=== PATIENT | female | born 2000 | race Caucasian/White ===

== ENCOUNTER 2020-07-26 07:51 | Inpatient (IN) | payer OTHER ==
[~2020-07-26] VITALS: Ht 167.6 cm; Wt 94.3 kg
[~2020-07-26 07:51] MED LIST: IBUP-2437
[2020-07-26] MEDS ORDERED: MORPHINE SULFATE 4 MG/ML CPJ (NOT FOR IM USE) IV STA (08:17)
[2020-07-26 09:12] LABS: CHLORIDE 107 mEq/L (98-107)
[2020-07-26 09:18] LABS: BASOPHILS % 0.3 % (0.0-2.0); EOSINOPHILS % 0.7 % (0.0-5.0); HEMATOCRIT. 38.5 % (36.0-48.0); HEMOGLOBIN. 12.5 g/dL (12.0-16.0); LYMPHOCYTES % 16.5 % (20.0-50.0); MEAN CORPUSCULAR HEMOGLOBIN 24.8 pg (28.0-32.0); MEAN PLATELET VOLUME 8.1 fl (7.4-10.4); NEUTROPHILS % 75.5 % (40.0-76.0); PLATELET 282 x1000/uL (130-400); RED BLOOD CELL COUNT 5.06 mill/uL (4.2-5.4); RED CELL DISTRIBUTION WIDTH 14.9 % (11.6-14.6)
[2020-07-26 09:23] LABS: PROTHROMBIN TIME 10.6 sec (9.6-11.0)
[2020-07-26 09:35] LABS: CLARITY URINE CLOUDY (CLEAR); COLOR URINE YELLOW (YELLOW); KETONES URINE NEGATIVE (NEGATIVE); LEUKOCYTE ESTERASE URINE 3+ (NEGATIVE); NITRITE URINE NEGATIVE (NEGATIVE); OCCULT BLOOD URINE 2+ (NEGATIVE); PROTEIN URINE 1+ (NEGATIVE); SPECIFIC GRAVITY URINE 1.019 (1.005-1.030)
[2020-07-26 09:38] LABS: HCG SCREEN NEGATIVE
[2020-07-26] MEDS ORDERED: MORPHINE SULFATE 4 MG/ML CPJ (NOT FOR IM USE) IV ONE ×2 (10:15→12:45)
[2020-07-26] MEDS ORDERED: CEFTRIAXONE 1 G PREMIX 50 ML IV ONE (10:30)
[2020-07-26] MEDS: KETOROLAC 15MG/ML VIAL IV PRN (16:37)
[2020-07-26] MEDS ORDERED: ACETAMINOPHEN 325MG TABLET PO PRN (18:15)
[2020-07-26] MEDS: HYDROCODONE/ACETAMINOPHEN 5/325MG TABLET PO PRN (18:49)
[2020-07-26 20:00] VITALS: BP 113/68
[2020-07-26] MEDS: ONDANSETRON HCL 4MG/2ML INJ IV PRN (20:07)
[2020-07-26] MEDS: HYDROMORPHONE HCL/PF 2MG/ML CPJ IV PRN (21:00)
[2020-07-26] MEDS ORDERED: INFLUENZA VACCINE 05/PF 0.5 ML VIAL IM ONE (23:30)
[2020-07-27] VITALS: BP 120/75
[2020-07-27] MEDS: HYDROCODONE/ACETAMINOPHEN 5/325MG TABLET PO PRN (01:05)
[2020-07-27 04:00] VITALS: BP 125/80
[2020-07-27 08:00] VITALS: BP 109/63
[2020-07-27] MEDS: ONDANSETRON HCL 4MG/2ML INJ IV PRN ×2 (09:01→18:08)
[2020-07-27] MEDS: HYDROMORPHONE HCL/PF 2MG/ML CPJ IV PRN ×3 (09:03→23:14)
[2020-07-27] MEDS ORDERED: CEFTRIAXONE 1,000 MG in DEXTROSE 5% WATER 50 ML IV SCH (11:00)
[2020-07-27 12:00] VITALS: BP 114/62
[2020-07-27] MEDS: KETOROLAC 15MG/ML VIAL IV PRN (13:54)
[2020-07-27 16:00] VITALS: BP 116/82
[2020-07-27 16:18] LABS: BASOPHILS % 0.3 % (0.0-2.0); EOSINOPHILS % 0.8 % (0.0-5.0); HEMATOCRIT. 36.3 % (36.0-48.0); HEMOGLOBIN. 11.9 g/dL (12.0-16.0); LYMPHOCYTES % 21.6 % (20.0-50.0); MEAN CORPUSCULAR HEMOGLOBIN 25.2 pg (28.0-32.0); MEAN CORPUSCULAR VOLUME 76.9 fL (81.0-99.0); MEAN PLATELET VOLUME 8.1 fl (7.4-10.4); MONOCYTES % 9.2 % (2.0-8.0); NEUTROPHILS % 68.1 % (40.0-76.0); PLATELET 277 x1000/uL (130-400); RED BLOOD CELL COUNT 4.72 mill/uL (4.2-5.4); RED CELL DISTRIBUTION WIDTH 15.3 % (11.6-14.6)
[2020-07-27 16:27] LABS: CHLORIDE 104 mEq/L (98-107)
[2020-07-27] MEDS ORDERED: POTASSIUM CHLORIDE 20MEQ TABLET SR PO NR (17:00)
[2020-07-27] MEDS: SODIUM CHLORIDE 0.9% 1,000 ML IV SCH (17:11)
[2020-07-27 20:00] VITALS: BP 105/66
[2020-07-27] MEDS ORDERED: LACTULOSE 20G/30ML UDC PO PRN (22:58)
[2020-07-28] VITALS: BP 106/58
[2020-07-28 04:00] VITALS: BP 106/61
[2020-07-28 08:00] VITALS: BP 104/56
[2020-07-28] MEDS: DOCUSATE SODIUM 100MG CAPSULE PO SCH ×2 (08:37→17:53)
[2020-07-28] MEDS: CEFTRIAXONE 1,000 MG in DEXTROSE 5% WATER 50 ML IV SCH (10:30)
[2020-07-28] MEDS: HYDROMORPHONE HCL/PF 2MG/ML CPJ IV PRN ×2 (10:31→21:32)
[2020-07-28 12:00] VITALS: BP 124/78
[2020-07-28] MEDS ORDERED: VANCOMYCIN 2,000 MG in DEXT 5% WATER 500 ML IV NR (15:00)
[2020-07-28 16:00] VITALS: BP 132/64
[2020-07-28] MEDS ORDERED: DIPHENHYDRAMINE 50MG/ML VIAL IV PRN (19:45)
[2020-07-28 20:00] VITALS: BP 124/69
[2020-07-28] MEDS: SODIUM CHLORIDE 0.9% 1,000 ML IV SCH (20:02)
[2020-07-28] MEDS: VANCOMYCIN 1 G PREMIX 200 ML IV SCH (23:48)
[2020-07-29] VITALS: BP 123/78
[2020-07-29 04:00] VITALS: BP 115/61
[2020-07-29 06:02] LABS: BASOPHILS % 0.4 % (0.0-2.0); EOSINOPHILS % 1.1 % (0.0-5.0); HEMATOCRIT. 34.4 % (36.0-48.0); HEMOGLOBIN. 11.4 g/dL (12.0-16.0); LYMPHOCYTES % 19.8 % (20.0-50.0); MEAN CORPUSCULAR HEMOGLOBIN 25.3 pg (28.0-32.0); MEAN CORPUSCULAR VOLUME 76.1 fL (81.0-99.0); MEAN PLATELET VOLUME 7.9 fl (7.4-10.4); MONOCYTES % 7.7 % (2.0-8.0); PLATELET 284 x1000/uL (130-400); RED BLOOD CELL COUNT 4.52 mill/uL (4.2-5.4); RED CELL DISTRIBUTION WIDTH 14.8 % (11.6-14.6)
[2020-07-29 06:07] LABS: CHLORIDE 108 mEq/L (98-107)
[2020-07-29] MEDS: VANCOMYCIN 1 G PREMIX 200 ML IV SCH ×2 (07:15→14:45)
[2020-07-29 08:00] VITALS: BP 100/43
[2020-07-29] MEDS: DOCUSATE SODIUM 100MG CAPSULE PO SCH ×2 (08:06→17:14)
[2020-07-29] MEDS: SODIUM CHLORIDE 0.9% 1,000 ML IV SCH ×2 (11:15→21:30)
[2020-07-29] MEDS: CEFTRIAXONE 1,000 MG in DEXTROSE 5% WATER 50 ML IV SCH (11:16)
[2020-07-29 12:00] VITALS: BP 132/80
[2020-07-29] MEDS: ONDANSETRON HCL 4MG/2ML INJ IV PRN (15:13)
[2020-07-29] MEDS: KETOROLAC 15MG/ML VIAL IV PRN ×2 (15:13→21:30)
[2020-07-29 16:00] VITALS: BP 102/65
[2020-07-29 20:00] VITALS: BP 105/61
[2020-07-30] VITALS: BP 104/60
[2020-07-30 04:00] VITALS: BP 104/67
[2020-07-30 08:00] VITALS: BP 109/70
[2020-07-30 08:28] LABS: BASOPHILS % 0.4 % (0.0-2.0); EOSINOPHILS % 1.7 % (0.0-5.0); HEMATOCRIT. 36.5 % (36.0-48.0); HEMOGLOBIN. 11.9 g/dL (12.0-16.0); LYMPHOCYTES % 23.5 % (20.0-50.0); MEAN CORPUSCULAR VOLUME 76.7 fL (81.0-99.0); MEAN PLATELET VOLUME 7.9 fl (7.4-10.4); MONOCYTES % 10.1 % (2.0-8.0); NEUTROPHILS % 64.3 % (40.0-76.0); PLATELET 290 x1000/uL (130-400); RED BLOOD CELL COUNT 4.75 mill/uL (4.2-5.4); RED CELL DISTRIBUTION WIDTH 14.9 % (11.6-14.6)
[2020-07-30 08:38] LABS: CHLORIDE 107 mEq/L (98-107)
[2020-07-30 08:47] LABS: VANCOMYCIN TROUGH 5.5 ug/mL (5.0-10.0)
[2020-07-30] MEDS ORDERED: SULFAMETHOXAZOLE/TRIMETHOPRIM 800/160MG TABLET PO SCH (09:00)
[2020-07-30] MEDS: DOCUSATE SODIUM 100MG CAPSULE PO SCH (09:29)
[2020-07-30] MEDS: KETOROLAC 15MG/ML VIAL IV PRN (09:38)
[2020-07-30 12:00] VITALS: BP 123/72
[2020-07-30] MEDS ORDERED: SULF1TAB44 PO (12:40)
[2020-07-30] MEDS ORDERED: KETOROLAC 15MG/ML VIAL IV NR (13:00)
[2020-07-30 14:32] VITALS: BP 132/72
[2020-07-30 15:30] VITALS: BP 118/81
== END 2020-07-30 15:30 | disposition home or self-care (01) | DRG 720 ==
LOC: ER 07:55 → 6EST 14:58 → ENRESERV 17:03
PROVIDERS: ADMIT Internal Medicine; ATTEND Internal Medicine
DX: A41.1 Sepsis due to other specified staphylococcus (principal); E66.9 Obesity, unspecified; E87.6 Hypokalemia; R16.1 Splenomegaly, not elsewhere classified; N12 Tubulo-interstitial nephritis, not specified as acute or chronic; B95.8 Unspecified staphylococcus as the cause of diseases classified elsewhere; Z68.33 Body mass index [BMI] 33.0-33.9, adult; Z79.1 Long term (current) use of non-steroidal anti-inflammatories (NSAID); B95.7 Other staphylococcus as the cause of diseases classified elsewhere
CPT/HCPCS: 36415; 74176; 80048; 80053; 80202; 81003; 84703; 85025; 86850; 86900; 87077; 87186; 99285; J0696; J1170; J1200; J1885; J2270; J2405; J3370; J7030; J7060

== ENCOUNTER 2022-09-22 23:22 | Emergency (ER) | payer MEDICAID, OTHER ==
[~2022-09-22] VITALS: Ht 160 cm; Wt 87.4 kg
[~2022-09-22 23:22] MED LIST changes: -IBUP-2437; +SULF1TAB44 PO
[2022-09-22 23:35] VITALS: BP 125/75
[2022-09-23] MEDS ORDERED: DOXY100C5 MT (04:09)
[2022-09-23] MEDS ORDERED: BENZ100C86 MT (04:09)
[2022-09-23] MEDS ORDERED: P20 MT (04:09)
== END 2022-09-23 04:13 | disposition home or self-care (01) ==
LOC: ER 23:22
DX: J45.909 Unspecified asthma, uncomplicated (principal)
CPT/HCPCS: 71045; 93005; 99283; Z7610